=== PATIENT | male | born 1955 | race Caucasian/White ===

== ENCOUNTER 2017-11-12 07:52 | Day surgery (SDC) | payer OTHER ==
--- NOTE | 2017-11-12 08:16 | HP ---
Satellite [facility] - Chief Complaint Chief Complaint: left shoulder pain History of Present Illness: left shoulder impingement, partial RTC tear History Source: Patient Limitations to Obtaining History: No Limitations - Past Medical History Allergies/Adverse Reactions: Allergies Allergy/AdvReac Type Severity Reaction Status Date / Time No Known Allergies Allergy Verified 11/10/17 19:23 - Current Medications Current Medications: Home Medications Medication Instructions Recorded Aspirin 81 mg PO 11/10/17 Atenolol [Tenormin -] 12.5 mg PO DAILY 11/10/17 Atorvastatin Ca [Lipitor] 80 mg PO HS 11/10/17 Satellite Physical Exam - Physical Examination General Appearance: Well Nourished ENT: Clear Lung: Clear to auscultation Heart: Regular rate & rhythm, Gallops Breasts: Soft Abdomen: Soft Extremities: No edema Satellite Impression/Plan - Impression/Plan Impression: left shoulder impingement syndrome, partial RTC tear Operative Procedure: left shoulder arthroscopy, decompression Date to be Performed: 11/12/17
[2017-11-12 08:28] VITALS: BMI 28.0
[2017-11-12 08:43] LABS: URINE APPEARANCE CLEAR; URINE BILIRUBIN NEGATIVE (<2.0 mg/dL); URINE BLOOD NEGATIVE (NEGATIVE); URINE COLOR LTYELLOW; URINE GLUCOSE (UA) NEGATIVE (NEGATIVE); URINE KETONE NEGATIVE (NEGATIVE); URINE LEUK ESTERASE NEGATIVE (NEGATIVE); URINE NITRITE NEGATIVE (NEGATIVE); URINE PROTEIN NEGATIVE (NEGATIVE); URINE UROBILINOGEN NEGATIVE mg/dL (0.2-1.0)
[2017-11-12] MEDS ORDERED: oxyCODONE HCL 5 MG TABLET PO PRN ×2 (08:45)
[2017-11-12] MEDS ORDERED: LACTATED RINGERS SOLUTION 1,000 ML IV SCH (08:45)
[2017-11-12] MEDS ORDERED: ONDANSETRON 4 MG/2 ML VIAL IVPUSH PRN (08:45)
[2017-11-12] MEDS ORDERED: BUPIVACAINE HCL/PF 0.5% (5MG/ML) 10 ML VIAL ONE (09:14)
[2017-11-12] MEDS ORDERED: DEXAMETHASONE SOD PHOSPHATE/PF 10 MG/ML SDV ONE (09:14)
[2017-11-12] MEDS ORDERED: MIDAZOLAM HCL 2 MG/2 ML SINGLE DOSE VIAL ONE ×3 (09:19→11:12)
[2017-11-12] MEDS ORDERED: ePHEDrine SULFATE 50 MG/1 ML AMPULE ONE (12:08)
[2017-11-12] MEDS ORDERED: METOPROLOL TARTRATE 5 MG/5 ML VIAL ONE (12:32)
--- NOTE | 2017-11-12 13:04 | OP ---
Operative Note - Note: Operative Date: 11/12/17 ([facility]) Pre-Operative Diagnosis: left shoulder rct Operation: left shoulder arthroscop with RCR, SAD, EBONY Implants: 1 arthrex swivelock Post-Operative Diagnosis: Same as Pre-op Surgeon: Michael Wyatt Mds Nurse: Misha Mcgee Anesthesiologist/MOTOR HOME ELECTRICAL FOREMAN: Dani Wynn Anesthesia: General, Local Specimens Removed: shavings Estimated Blood Loss (mls): 5 Operative Report Dictated: Yes
--- NOTE | 2017-11-12 13:38 | OP ---
DATE OF OPERATION: DATE OF DICTATION: 11/12/2017 PREOPERATIVE DIAGNOSES: Left shoulder subacromial impingement and rotator cuff tear. POSTOPERATIVE DIAGNOSES: Left shoulder subacromial impingement and rotator cuff tear. PROCEDURE: Left shoulder arthroscopy, subacromial decompression and arthroscopic rotator cuff repair. SURGEON: Jose Walden MD HIGH LIGHTER: CANDELARIA Nunes RESTAURANT OPERATIONS MANAGER: Dani Wynn CRNA ANESTHESIA: Left interscalene block with LMA anesthesia. DRAINS: None. COMPLICATIONS: None. SPECIMEN: Arthroscopic shavings. BLOOD LOSS: Minimal. BLOOD GIVEN: None. FLUID REPLACEMENT: Plasma-Lyte, 700 mL. This patient is a 62-year-old male with the preoperative diagnosis of a left shoulder subacromial impingement and rotator cuff tear. After understanding the potential risks, complications, alternatives and benefits of surgery versus nonsurgical treatment, the patient elected to undergo this procedure. The patient was brought to the operating room. Peripheral IV placed. IV sedation given. Ancef 1 g IV was given. LMA anesthesia was induced. A left interscalene block was induced. He was placed into the beach chair position with ample padding throughout. The left upper extremity was then prepped and draped in sterile fashion. The bony landmarks marked out with a marking pen. A posterior portal was established. A diagnostic glenohumeral arthroscopy was performed. The patient's biceps tendon looked fine, but the biceps labrum looked very frayed from the 9 o'clock to the 12 o'clock position. Therefore, an anterior portal was established with a spinal needle under direct visualization and a Green cannula was introduced into the glenohumeral joint. The anterior labrum was probed. It was seen to be completely frayed and not repairable and therefore this was debrided with the shaver. The remaining labrum from the 9 o'clock position down to the 6 o'clock position was intact and quite stable. I very gently cauterized it on a low level to tighten it up a bit. The humeral head and the glenoid looked good. The undersurface of the rotator cuff showed what appeared to be a small nickel-sized complete rotator cuff tear. A small amount of undersurface rotator cuff fraying was debrided, further exposing the rotator cuff tear hole. Next, our attention turned to the subacromial space. A lateral portal was established under direct visualization. Patient had a tremendous amount of inflammatory bursitis and therefore an ArthroCare wand was used to do a soft tissue bursectomy/ debridement. After the extensive debridement, I was able to better visualize a moderate- to large-sized subacromial bony spur. This was taken down with the 5.5-mm oval bur and then the undersurface of the acromion was fine tuned in reverse. The shaver was introduced to remove the remaining bursa and soft tissue and bony debris. I was able to directly visualize a hole in the top surface of the rotator cuff and easily pass a trocar through it. Photographs were taken. Then arthroscopically I put in 2 FiberWires with the [employer] needle passer and put these through 1 SwiveLock anchor. It all came down quite nicely. The rotator cuff moved as a unit with the head. The area was copiously irrigated and washed out. All instrumentation removed. All arthroscopy portals were closed with 3-0 nylon sutures. The area was then covered with Aquacel dressing. He was extubated. Tolerated the procedure quite well. Total surgical time was about 50 minutes. There were no complications during the case. Shoulder immobilizer was applied and he was brought to the ambulatory recovery room in stable condition. JOSE WALDEN M.D. [id number]
[2017-11-12 14:33] VITALS: TEMP 98.1
[2017-11-12 15:38] VITALS: BP 124/61; PULSE 74
--- NOTE | 2017-11-13 14:08 | PATH ---
Surgical Pathology Report Patient Name: FATOUMATA ENGLISH Med. Rec. #: [id number] /Age/Gender: 1955 (Age: 62) / M Account: [id number] Location: [facility] SURGICAL Taken: 11/12/2017 Received: 11/12/2017 Reported: 11/13/2017 Physicians: Michael Wyatt M.D. Specimen(s) Received LEFT SHOULDER SHAVINGS Clinical History Left shoulder impingement syndrome Final Diagnosis LEFT SHOULDER, ARTHROSCOPIC SHAVING: PORTIONS OF SYNOVIUM, CARTILAGE, SKELETAL MUSCLE AND BONE CONSISTENT WITH ARTHROSCOPIC SHAVINGS. Electronically Signed Matty Gunter M.D. Gross Description Received in formalin, labeled "left shoulder shavings," is a 2.5 cm. aggregate of tavera-yellow soft tissue fragments. A ocean import representative portion is submitted in one cassette. [facility]/11/12/2017 [facility]/11/12/2017
== END 2017-11-12 15:42 | disposition home or self-care (01) ==
LOC: JASU-SURG 07:52
PROVIDERS: ATTEND Orthopaedic Surgery
PROC: 0RNK4ZZ Release Left Shoulder Joint, Percutaneous Endoscopic Approach (ICD-10-PCS; principal; 2017-11-12 10:00)
PROC: 0LQ24ZZ Repair Left Shoulder Tendon, Percutaneous Endoscopic Approach (ICD-10-PCS; 2017-11-12 10:00)
DX: M75.42 Impingement syndrome of left shoulder (principal); M75.102 Unspecified rotator cuff tear or rupture of left shoulder, not specified as traumatic
CPT/HCPCS: 81003; 88304-TC; 94760